=== PATIENT | male | born 1995 | race Caucasian/White ===

== ENCOUNTER 2025-02-10 13:20 | Day surgery (SDC) | payer OTHER ==
[2025-02-06 11:26] VITALS: BMI 22.8
[~2025-02-10 13:20] MED LIST: HYDROmorphone 0.5 MG/0.5 ML SYRINGE IVP PRN; Pre Op ABX Message 1 EACH MISC MISCELLANE ONE
[2025-02-10] MEDS: IV FLUID CONTINUATION 1,000 ML IV ONE (13:53)
[2025-02-10 14:02] VITALS: TEMP 98.7
[2025-02-10] MEDS: ONDANSETRON 4 MG/2 ML VIAL IVP ONE (14:20)
[2025-02-10] MEDS: DEXAMETHASONE SOD PHOSPHATE 4 MG/ML 1 ML VIAL IV ONE (14:20)
[2025-02-10] MEDS: LACTATED RINGERS 1,000 ML IV SCH (14:21)
[2025-02-10] MEDS ORDERED: KETAMINE HCL IN 0.9 % NACL 50 MG/5 ML SYRINGE ONE (15:31)
[2025-02-10] MEDS ORDERED: PROPOFOL 10 MG/ML 20 ML VIAL IV ONE (15:31)
[2025-02-10] MEDS ORDERED: MIDAZOLAM 2 MG/2 ML VIAL ONE (15:31)
[2025-02-10] MEDS ORDERED: fentaNYL (PF) 50 MCG/ML 2 ML AMP ONE (15:31)
[2025-02-10] MEDS: methylPREDNISolone ACETATE 40 MG/ML 1 ML VIAL INJ ONE (15:56)
[2025-02-10] MEDS: LIDOCAINE 1% INJ 10MG/ML (20 ML MDV) SQ ONE (15:57)
[2025-02-10] MEDS: BUPIVACAINE (PF) 0.5% 30 ML VIAL SQ ONE (15:58)
[2025-02-10] MEDS: LIDOCAINE 1%-EPI 1:100,000 20 ML VIAL SQ ONE (15:59)
[2025-02-10 16:39] VITALS: RESP 16
[2025-02-10 17:31] VITALS: BP 127/74; PULSE 80
--- NOTE | 2025-02-10 21:48 | P.OP ---
Date of Procedure: 02/10/25 Preoperative Diagnosis: Right carpal tunnel syndrome, Left carpal tunnel syndrome, Left Middle Finger Trigger Finger Postoperative Diagnosis: same Procedure(s) Performed: Left carpal tunnel release, endoscopic Left middle finger trigger finger injection Right carpal tunnel injection Anesthesia: MAC Surgeon: Brooklyn Huizar Estimated Blood Loss (ml): 1 Condition: stable Disposition: PACU Indications for Procedure: Patient has had numbness and tingling in his fingertips due to bilateral carpal tunnel syndrome. His left is worse than his right. We have decided to release the left surgically and inject the right. He has also developed triggering of the left middle finger trigger finger and we will inject that today concurrently. Description of Procedure: The patient, operative extremity, and procedure were identified in the preoperative holding area. After informed consent was obtained, the patient was then brought back to the operating room where a local block was performed with lidocaine with epinephrine and 0.5% marcaine. A mix of kenalog and lidocaine was injected into the A1 janelle of the left middle finger and right carpal tunnel under sterile conditions. The extremity was then prepped and draped in normal sterile fashion with a tourniquet on the patients brachium. A formal timeout was performed and the tourniquet was inflated to 250mmHg. A transverse incision was made just ulnar to the palmaris longus tendon. Dissection was taken down to the forearm fascia. This is released proximally about a centimeter. The incision was utilized to access the carpal tunnel with serial dilators followed by the cannula. When the arthroscope was inserted, the transverse carpal ligament was well isolated without any aberrant soft tissue visible. Under direct visualization, the cutting tool was used to transect the transverse carpal ligament in its entirety. The release was confirmed visually with the arthroscope and also by palpation with the dilator tool. Tourniquet was then let down, hemostasis was achieved and the wound was closed with skin glue and steristrips. Wound was dressed with telfa and tegaderm. Patient was aroused by the anesthesia team and brought back to PACU in stable condition.
== END 2025-02-10 17:37 | disposition home or self-care (01) ==
LOC: OR 13:20
PROVIDERS: ATTEND Orthopaedic Surgery Hand Surgery
DX: G56.03 Carpal tunnel syndrome, bilateral upper limbs (principal); M65.332 Trigger finger, left middle finger; F41.9 Anxiety disorder, unspecified; Z79.899 Other long term (current) drug therapy
CPT/HCPCS: 29848; 20526; 20550; J1100; J2405; J2003; J0665; J1010